=== PATIENT | female | born 1985 | race Caucasian/White ===

== ENCOUNTER 2018-02-19 22:11 | Outpatient (CLI) | payer MEDICAID | END 2018-02-20 02:00 | disposition home or self-care (01) | LOC: OBT 22:11 → L-D 22:13 | DX: O62.9 Abnormality of forces of labor, unspecified (principal); Z3A.38 38 weeks gestation of pregnancy | CPT/HCPCS: 76818 ==

== ENCOUNTER 2018-02-23 07:44 | Outpatient (CLI) | payer MEDICAID ==
[2018-02-23 09:01] LABS: ADD UMIC YES; UR ASCORBIC ACID NEGATIVE (NEGATIVE); UR BACTERIA FEW /HPF (NONE SEEN); UR BILIRUBIN (Dip) NEGATIVE (NEGATIVE); UR BLOOD (Dip) NEGATIVE (NEGATIVE); UR CLARITY CLEAR (CLEAR); UR COLOR STRAW (YELLOW); UR GLUCOSE (Dip) NEGATIVE (NEGATIVE); UR KETONES (Dip) NEGATIVE (NEGATIVE); UR LEUKOCYTE ESTERASE (Dip) 1+ Leu/ul (NEGATIVE); UR NITRITE (Dip) NEGATIVE (NEGATIVE); UR RBC 0 /HPF (0-5); UR SPECIFIC GRAVITY (Dip) 1.005 (1.003-1.030); UR TOTAL PROTEIN (Dip) NEGATIVE (NEGATIVE); UR UROBILINOGEN (Dip) NEGATIVE (NEGATIVE); UR WBC 1 /HPF (0-5)
[2018-02-23 09:17] LABS: RUPTURE FETAL MEMBRANES NEGATIVE (NEGATIVE)
== END 2018-02-23 09:40 | disposition home or self-care (01) ==
LOC: OBT 07:44 → L-D 07:45 → OBT 09:40
DX: O60.03 Preterm labor without delivery, third trimester (principal); Z3A.39 39 weeks gestation of pregnancy
CPT/HCPCS: 76818; 81001; 84112

== ENCOUNTER 2018-03-04 11:27 | Inpatient (IN) | payer MEDICAID ==
[2018-03-04] MEDS ORDERED: LIDOCAINE 1% (MPF) 30 ML INJ INJ (12:00)
[2018-03-04] MEDS ORDERED: BUTORPHANOL 2 MG INJ IV (12:00)
[2018-03-04] MEDS ORDERED: MISOPROSTOL 200 MCG TAB PR (12:00)
[2018-03-04] MEDS ORDERED: CARBOPROST 250 MCG INJ IM (12:00)
[2018-03-04] MEDS ORDERED: OXYTOCIN 30 UNITS/LR 500 ML IV ×2 (12:00)
[2018-03-04] MEDS ORDERED: METHYLERGONOVINE 0.2 MG INJ IM (12:00)
[2018-03-04 12:10] LABS: ADD MAN DIFF? NO
[2018-03-04 12:13] LABS: WHITE BLOOD COUNT 11.3 10^3/ul (4.8-10.8)
[2018-03-04 12:13] LABS: BASOPHILS % 0.4 % (0.0-2.0); EOSINOPHILS # 0.1 10^3/ul (0.0-0.5); EOSINOPHILS % 0.8 % (0.0-7.0); HEMATOCRIT 36.9 % (37.0-47.0); HEMOGLOBIN 12.4 g/dl (12.0-16.0); LYMPHOCYTES # 2.1 10^3/ul (0.8-2.9); LYMPHOCYTES % 18.9 % (15.0-51.0); MEAN CORPUSCULAR HGB CONC 33.6 g/dl (32.0-37.0); MEAN CORPUSCULAR VOLUME 89.1 fl (82.0-101.0); MEAN PLATELET VOLUME 10.1 fl (7.4-10.4); MONOCYTE # 0.5 10^3/ul (0.3-0.9); MONOCYTES % 4.6 % (0.0-11.0); NEUTROPHIL # 8.4 10^3/ul (1.6-7.5); NEUTROPHILS % 74.8 % (39.0-77.0); PLATELET COUNT 293 10^3/UL (140-415); RED BLOOD COUNT 4.14 10^6/ul (4.20-5.40); RED CELL DISTRIBUTION WIDTH 13.7 % (11.5-14.5)
[2018-03-04] MEDS: LACTATED RINGER'S 1,000 ML IV ×3 (12:15→21:36)
[2018-03-04 12:38] LABS: INR 0.94; PROTIME 12.7 Sec (11.9-14.9)
[2018-03-04 12:39] LABS: PARTIAL THROMBOPLASTIN TIME 28.4 Sec (25.0-35.0)
[2018-03-04 13:06] LABS: HEPATITIS B SURFACE ANTIGEN NEGATIVE (NEGATIVE)
[2018-03-04] MEDS: OXYTOCIN 30 UNITS/LR 500 ML IV (13:46)
[2018-03-04 16:57] LABS: RAPID PLASMA REAGIN NONREACTIVE (NR)
[2018-03-05] MEDS: ACETAMINOPHEN 500 MG TAB PO (00:18)
[2018-03-05] MEDS: LACTATED RINGER'S 1,000 ML IV ×4 (02:09→10:35)
[2018-03-05] MEDS ORDERED: FENTAnyl 2MCG/ML-ROPIV 0.2% 100 ML (03:04)
[2018-03-05] MEDS ORDERED: ONDANSETRON 4 MG INJ IV ×2 (03:30→15:00)
[2018-03-05] MEDS ORDERED: DIPHENHYDRAMINE 50 MG INJ IV ×2 (03:30→15:00)
[2018-03-05] MEDS ORDERED: NALOXONE (0.4 MG/ML) INJ IV (03:30)
[2018-03-05] MEDS: FENTAnyl 2MCG/ML-ROPIV 0.2% 100 ML BAG EPI (11:25)
[2018-03-05] MEDS: OXYTOCIN 30 UNITS/LR 500 ML IV ×2 (11:49→14:20)
[2018-03-05] MEDS ORDERED: DEXTROSE 5%-LR 1,000 ML IV (14:37)
[2018-03-05] MEDS ORDERED: ACETAMINOPHEN 325 MG TAB PO (15:00)
[2018-03-05] MEDS ORDERED: CARBOPROST 250 MCG INJ IM (15:00)
[2018-03-05] MEDS ORDERED: OXYCODONE/ASPIRIN (4.88/325) TAB PO (15:00)
[2018-03-05] MEDS ORDERED: ZOLPIDEM 5 MG TAB PO (15:00)
[2018-03-05] MEDS ORDERED: SENNA/DOCUSATE NA (8.6MG/50MG) TAB PO (15:00)
[2018-03-05] MEDS ORDERED: METHYLERGONOVINE 0.2 MG INJ IM (15:00)
[2018-03-05] MEDS ORDERED: OXYTOCIN 30 UNITS/LR 500 ML IV (15:00)
[2018-03-05] MEDS ORDERED: DIBUCAINE 1% 30 GM OINT PR (15:00)
[2018-03-05] MEDS ORDERED: MISOPROSTOL 200 MCG TAB PR (15:00)
[2018-03-05] MEDS: IBUPROFEN 600 MG TAB PO ×3 (16:01→23:40)
[2018-03-05] MEDS: LACTATED RINGER'S 1,000 ML IV* (16:57)
[2018-03-05] MEDS: WITCH HAZEL/GLYCERIN PAD PR (18:21)
[2018-03-05] MEDS: LANOLIN 7 GM TUBE TOP (18:21)
[2018-03-05] MEDS: BENZOCAINE 20% 56 ML SPRAY TOP (18:21)
[2018-03-06] MEDS: IBUPROFEN 600 MG TAB PO ×4 (05:48→23:54)
[2018-03-06] MEDS: LACTATED RINGER'S 1,000 ML IV* ×4 (08:29→22:37)
[2018-03-06 09:59] LABS: ADD MAN DIFF? NO
[2018-03-06 10:05] LABS: BASOPHILS % 0.2 % (0.0-2.0); EOSINOPHILS # 0.2 10^3/ul (0.0-0.5); EOSINOPHILS % 1.2 % (0.0-7.0); HEMATOCRIT 29.6 % (37.0-47.0); HEMOGLOBIN 9.9 g/dl (12.0-16.0); LYMPHOCYTES # 2.1 10^3/ul (0.8-2.9); LYMPHOCYTES % 16.8 % (15.0-51.0); MEAN CORPUSCULAR HGB CONC 33.4 g/dl (32.0-37.0); MEAN CORPUSCULAR VOLUME 89.7 fl (82.0-101.0); MONOCYTE # 0.6 10^3/ul (0.3-0.9); NEUTROPHIL # 9.6 10^3/ul (1.6-7.5); NEUTROPHILS % 76.2 % (39.0-77.0); PLATELET COUNT 237 10^3/UL (140-415); RED CELL DISTRIBUTION WIDTH 13.5 % (11.5-14.5)
[2018-03-06 10:05] LABS: WHITE BLOOD COUNT 12.6 10^3/ul (4.8-10.8)
[2018-03-07] MEDS: IBUPROFEN 600 MG TAB PO ×2 (06:00→12:00)
[2018-03-07] MEDS: LACTATED RINGER'S 1,000 ML IV* ×2 (06:37→14:37)
[2018-03-07] MEDS: MEASLES,MUMPS,RUBELLA VACCINE INJ SC* (09:00)
[2018-03-07] MEDS: DIPHTH/TET/ACEL PERTUSS (ADULT) 0.5 ML VIAL IM* (14:39)
== END 2018-03-07 16:05 | disposition home or self-care (01) | DRG 775 ==
LOC: L-D 11:27 → PP1 03-05 16:25
PROVIDERS: Specialist
PROC: 10E0XZZ Delivery of Products of Conception, External Approach (ICD-10-PCS; principal; 2018-03-05)
PROC: 3E033VJ Introduction of Other Hormone into Peripheral Vein, Percutaneous Approach (ICD-10-PCS; 2018-03-05)
DX: O48.0 Post-term pregnancy (principal); Z3A.40 40 weeks gestation of pregnancy; O99.214 Obesity complicating childbirth; E66.01 Morbid (severe) obesity due to excess calories; Z68.37 Body mass index [BMI] 37.0-37.9, adult; Z37.0 Single live birth
CPT/HCPCS: 62319; 76815; 85025; 85610; 85730; 86592; 86850; 86900; 86901; 87340; 90715

== ENCOUNTER 2018-05-12 15:06 | Emergency (ER) | payer MEDICAID | END 2018-05-12 17:10 | disposition home or self-care (01) | LOC: FTE 15:06 | DX: K64.4 Residual hemorrhoidal skin tags (principal) | CPT/HCPCS: 99283; Z7502 ==